=== PATIENT | female | born 1980 ===

== ENCOUNTER → 2017-06-14 | Emergency (ER) | payer OTHER ==
[~2017-06-14] VITALS: Ht 152.4 cm; Wt 47.6 kg
[~2017-06-14] MED LIST: BENADRYL25 MG PO; CLONAZEPAM0.5 MG; EFFEXOR XR75 MG; MEDROLPACK PO; PRENATAL1 TAB PO; TRANXENE T-TAB7.5 MG PO; ZYRTEC10 M3 PO
== END | disposition home or self-care (01) ==
LOC: ER 13:04
DX: K52.89 Other specified noninfective gastroenteritis and colitis (principal)